=== PATIENT | female | born 1950 | race Caucasian/White ===

== ENCOUNTER 2016-06-26 10:09 | Day surgery (SDC) | payer MEDICARE ==
[2016-06-26] VITALS (11 sets, daily range): BP systolic 80–167; BP diastolic 56–91; PULSE 58–71; RESP 14–26; O2SAT 95–100
[~2016-06-26] VITALS: Ht 167.6 cm; Wt 72.6 kg
[2016-06-26] MEDS: Lactated Ringer's 1,000 ML IV SCH ×3 (05:00→12:29)
[~2016-06-26 10:09] MED LIST: ASPI-973 PO; CALC600T12 PO; CHOL100045 PO; Ceftriaxone 1,000 mg/50 mL D5W Minibag Plus IV ONE; DOXY25TA44 PO; HYDR25TA4 PO; LISI-567 PO; LOVA40TA PO; MELO-253 PO; OMEG-38 PO; OXYB10TA PO; PREC VAGINAL; Phenazopyridine 97.5 mg Tablet PO ONE; RANI150T11 PO; RISE150T PO
[2016-06-26] MEDS ORDERED: Propofol 10,000 mCg/mL 20 mL Inj ONE (10:10)
[2016-06-26] MEDS ORDERED: fentaNYL-PF 50 mCg/mL 2 mL Inj ONE (10:10)
[2016-06-26] MEDS ORDERED: Ondansetron 2 mg/mL 2 mL Inj ONE (10:10)
[2016-06-26] MEDS ORDERED: Furosemide 10 mg/mL 4 mL Inj ONE (10:10)
[2016-06-26] MEDS ORDERED: Succinylcholine Chloride 20 mg/mL 5 mL Inj ONE (10:10)
[2016-06-26] MEDS ORDERED: Phenazopyridine 97.5 mg Tablet ONE (10:53)
--- NOTE | 2016-06-26 12:20 | PCM.HPANE ---
Patient Data Surgeon Admitting Provider: Attending Provider:Estrada Blackmon MD Primary Care Physician:Curry Hodges DO Other Provider:[facility] Reason for Visit Cystocele, Rectocele, Vaginal Vault Prolapse Ht/WT & BMI Height (Feet): 5 Height (Inches): 6 Weight (Kilograms): 69.8 Body Mass Index 24.00 Allergies Coded Allergies: Penicillins (Verified Allergy, Unknown, UNKNOIWN (PEN V K AN INFANT) , 06/25/16) iodine (Verified Allergy, Unknown, UNKNOWN, 06/25/16) Past Anesthesia History Anesthesia History: Denies:: Anesthesia Reactions, Malignant Hyperthermia Diabetes History Hx Diabetes?: No MRSA MRSA: No Medications Blood Thinner: Aspirin Hypertension Medication: Yes (HCTZ,LISINOPRIL) Home Meds Incl Beta Richar: No Reported Medications Compton-3/Dha/Epa/Fish Oil (Fish Oil 1,000 mg Softgel)1 Each Capsule3 Each PO DAILY 06/25/16 Calcium Carbonate (Calcium)600 Mg Tablet1,200 Mg PO DAILY 06/25/16 Cholecalciferol (Vitamin D3) (Vitamin D)1,000 Unit Capsule2,000 Unit PO DAILY # 1 BOTTLE Ref 0 06/25/16 Ranitidine (Zantac)150 Mg Qsmtgt316 Mg PO BID PRN PRN 06/25/16 Doxylamine Succinate (Nighttime Sleep-Aid)25 Mg Lqlwcd48 Mg PO HS PRN PRN 06/25/16 Aspirin 81 Mg Wityda93 Mg PO DAILY Ref 0 06/25/16 Risedronate Sodium (Actonel)150 Mg Csvbvb999 Mg PO Q30D Ref 0 06/25/16 Lisinopril 20 Mg Ppgtcf61 Mg PO DAILY 30 Days Ref 0 06/25/16 Lovastatin 40 Mg Gibzsi64 Mg PO HS #30 TABLET Ref 0 06/25/16 Hydrochlorothiazide 25 Mg Gaojrm45 Mg PO DAILY 30 Days Ref 0 06/25/16 Oxybutynin Chloride ER 10 Mg Tab.er.2410 Mg PO DAILY Ref 0 06/25/16 Estrogens Conjugated (Premarin)1 Gm Vagcream1.5 Gm VAGINAL 2X WEEK #1 TUBE Ref 0 06/25/16 Discontinued Reported Medications Meloxicam 15 Mg Qhyuqn24 Mg PO DAILY 30 Days Ref 0 06/25/16 History History of ENT Problems?: Yes HEENT History: Denies:: Abnormal Airway Cataracts Difficult Intubation Dysphagia Glaucoma Hearing Problem Sinus Problem TMJ Denture Type: None Teeth Condition: Within Normal Limits Other HEENT Pertinent History: S/P TONSILLECTOMY Hx of Heart Problems?: Yes Cardiovascular History: Positive for:: Hypertension (HYPERLIPIDEMIA) Rheumatic Fever (CHILDHOOD) Denies:: Heart Murmur Other History/Comments wELL CONTROLLED HYPERTENSION Hx of Respiratory Problem?: No Respiratory History: Denies:: Use of C-PAP Machine Hx Neurologic Problems?: No Hx of GI Problems?: Yes Gastrointestinal History: Positive for:: Gastroesphageal Reflux Heartburn Other GI Pertinent History: S/P APPY Hx of Problems?: Yes Female Hx: Denies:: Currently (S/P BTL HX VAGINAL ATROPHY) Skin History: Denies:: History Skin Disorders? Pressure Ulcers Hx Musculoskeletal Problems?: Yes Musculoskeletal History: Positive for:: Degenerative Joint Osteoarthritis (OSTEOPENIA PLANNING LT IVIS IN FUTURE) Denies:: Back Injury (C/OF BACK PAIN) Hx of Psycho/Social Problems?: No Hx Surgeries?: Yes (BTL,VAG HYST/BSO,APPY,TIANA,TONSILLECTOMY) Hx Any Other Health Problems?: Yes Other History: Denies:: Cancer Endocrine Disease Hospitalization Thyroid Disease History Blood Transfusions: Positive for:: Accept Blood Products? Denies:: Blood Transfusions Hx Diabetes: No Hx Alcohol Use: YesAlcoholic Drinks Per Day: 1-2/WEEKHx Substance Use: No Have You Smoked inLast 12 mo: No Stop/Bang Treated for Sleep Apnea?: No Do You Have a CPAP Machine?: No S-Snoring: Do You Snore Loudly: No T-Tired: feel tired, fatigued: No O-Obsered: Observed not breath: No P-Blood Pressure: treated: Yes B- Body Mass Index > 35 kg/m2: No A- Age over 50: Yes N- Neck Large Circumference: No G- Gender Male: No BREANNE Total Score: 2 Risk Assessment Category Category 1A: Patient has history of documented sleep apnea, and HAS NOT received any narcotic, sedative or anesthesia administration during this stay. Category 1B: Patient has history of documented sleep apnea, and HAS received any narcotic , sedative or anesthesia administration during this stay Category 2: Patient has SUSPECTED Obstructive Sleep Apnea, and HAS received any narcotic , sedative or anesthesia administration during this stay. Category 3: Patient has SUSPECTED Obstructive Sleep Apnea and HAS NOT received narcotic, sedative or anesthesia administration during this stay. Category 4: Outpatient in Procedural Areas with known sleep apnea or who screen positive for High Risk via the STOP/BANG questionnaire. Exam Exam Vital Signs Vital Signs Date Time Temp Pulse Resp B/P Pulse Ox O2 Delivery O2 Flow Rate FiO2 06/26/16 11:16 36.4 64 16 125/74 97 Room Air General Appearance: Alert, Oriented X3, Cooperative HEENT/AIRWAY: MP 2 Lungs: Clear to Auscultation, Normal Air Movement Heart: Exam Unremarkable Meds/Labs/Diagnostics Admission Meds Current Medications Lactated Ringer's (Lr) 1,000 ml @ 120 mls/hr Q8H20M IV Last administered on 11:06; Start 06/26/16 at 05:00; Stop 06/26/16 at 13:19 Phenazopyridine HCl (Azo Standard) 2 tab STK-MED ONCE .ROUTE Last administered on 06/26/16 11:00; Start 06/26/16 at 10:53; Stop 06/26/16 at 10:55; Status DC Plan Impression Patient chart reviewed, patient interviewed and anesthestic plan with risks, benefits, and alternatives discussed, and informed consent obtained. ASA Physical Status: ASA2 Mod Systemic Disease Anesthetic Plan: GA Bene/Risks/Altern/Consents: Yes HP Complete Prior to Induction: Yes Dylan Lin MD Jun 26, 2016 12:20
[2016-06-26] MEDS ORDERED: Gentamicin 40 mg/mL 2 mL Inj IRRIGATION ONE ×3 (13:02→14:50)
[2016-06-26] MEDS ORDERED: Lidocaine 1%-Epi 1:100,000 50 mL Inj NERVEBLOCK ONE (13:02)
[2016-06-26] MEDS ORDERED: Lactated Ringer's 500 ML IV PRN (15:04)
[2016-06-26] MEDS ORDERED: Lactated Ringer's 1,000 ML IV SCH (15:04)
[2016-06-26] MEDS ORDERED: MetoCLOpramide 5 mg/mL 2 mL Inj IVPUSH PRN ×2 (15:05→16:30)
[2016-06-26] MEDS ORDERED: Dexamethasone 4 mg/mL Inj IVPUSH PRN (15:05)
[2016-06-26] MEDS ORDERED: Phenylephrine 10,000 mCg/mL Inj IVPUSH PRN (15:05)
[2016-06-26] MEDS ORDERED: HYDROmorphone 1 mg/mL Inj IVPUSH PRN (15:05)
[2016-06-26] MEDS ORDERED: Ondansetron 2 mg/mL 2 mL Inj IVPUSH PRN ×2 (15:05→16:30)
[2016-06-26] MEDS ORDERED: EPHEDrine Sulfate 50 mg/mL Inj IVPUSH PRN (15:05)
[2016-06-26] MEDS ORDERED: Estrogens Conjugated 30 Gm Vaginal Cream VAGINAL ONE (15:11)
[2016-06-26] MEDS ORDERED: Alum-Mag Hydrox-Simeth 30 mL Suspension PO PRN (16:30)
[2016-06-26] MEDS ORDERED: Acetaminophen IV 1,000 MG in IV Premix 1 EACH IV PRN (16:30)
[2016-06-26] MEDS ORDERED: diphenhydrAMINE 25 mg Capsule PO PRN (16:30)
--- NOTE | 2016-06-26 16:34 | PCM.ANEP1 ---
Post Anesthesia Phase 1 PACU Phase 1 Assessment Vital Signs Vital Signs Date Time Temp Pulse Resp B/P Pulse Ox O2 Delivery O2 Flow Rate FiO2 06/26/16 11:16 36.4 64 16 125/74 97 Room Air Anesthetic Administered: GA Level of Alertness: Sleepy, easy to arouse ELIZALDE's with Equal Strength: Yes Pain: No Nausea or Vomiting: No Cardiovascular Function and Hy: Yes Oxygen Delivery: Simple Mask Lungs: Clear to Auscultation, Normal Air Movement Dermatome Level: Full Sensation Complications: No Dylan Lin MD Jun 26, 2016 16:34
[2016-06-26] MEDS ORDERED: Non-Formulary Medication (Ranitidine (Zantac) 150 MG) PO PRN (16:35)
[2016-06-26] MEDS: fentaNYL-PF 50 mCg/mL 2 mL Inj IVPUSH PRN ×2 (16:53→17:05)
[2016-06-26 17:19] LABS: APPEARANCE,URINE CLEAR (CLEAR,HAZY); COLOR,URINE YELLOW (YELLOW); OCCULT BLOOD,URINE NEGATIVE (NEGATIVE); PH,URINE 7.5 (5.0-8.0); UROBILINOGEN,URINE NORMAL (NORMAL)
--- NOTE | 2016-06-26 17:37 | NUR ---
Post Op Pt transferred from PACU at 1730. Pt A&Ox3. ELIZALDE. Needed assistance with transfer to bed as right hip is hurting. Pain rated 8/10 in hip and abdomen. Medication to be given. Denies nausea. Metz catheter patent and draining to gravity. Urine slightly orange in color. Labial dressing with steri-strips and band-aids C/D/I. Packing in place and guadalupe-pad C/D/I. Will continue to monitor.
[2016-06-26] MEDS: 0.9% Sodium Chloride 1,000 ML IV SCH (18:03)
[2016-06-26] MEDS: Ketorolac 15 mg/mL Inj IVPUSH SCH (19:08)
[2016-06-26] MEDS: oxyCODONE-Acetamin 5-325 mg Tablet PO PRN (23:13)
[2016-06-27] MEDS: oxyCODONE-Acetamin 5-325 mg Tablet PO PRN ×4 (00:39→12:46)
[2016-06-27] MEDS: 0.9% Sodium Chloride 1,000 ML IV SCH ×2 (00:40→08:28)
[2016-06-27] MEDS ORDERED: Ceftriaxone 1,000 mg/50 mL D5W Minibag Plus IV ONE ×2 (01:00)
[2016-06-27] MEDS: Ketorolac 15 mg/mL Inj IVPUSH SCH (01:39)
--- NOTE | 2016-06-27 01:43 | PCM.SURGOP ---
Surgical Operative Report Date of Service: Jun 26, 2016 Pre Operative Diagnosis 1. Rectocele 2. Vaginal vault prolapse after hysterectomy 3. Cystocele 4. urodynamic stress incontinence 5. Vulvar lesion Post Operative Diagnosis 1. POPQ stage 3 Rectocele, Vaginal vault prolapse, and Enterocele 2. POPQ stage 1-2 Cystocele 3. urodynamic stress incontinence 4. Vulvar lesion Procedure: 1. anterior repair 2. posterior repair with Xenform biologic graft augmentation, 3. high uterosacral ligament vaginal vault suspension and enterocele repair, 4. TVT-obturator sling and cystoscopy 5. excision of vulvar lesion Surgeon and Customer Support Consultant: Surgeon: Estrada Blackmon MD Assistants: Phoebe Mistry Indication for Procedure Her assessment to date includes: 1. Rectocele N81.6 (618.04): 2. Vaginal vault prolapse after hysterectomy N99.3 (618.5): 3. Urodynamics revealed urodynamic stress incontinence and detrusor overactivity incontinence 4. Hyperpigmented Vulvar lesion The patient is a candidate for surgical management in the form of anterior repair and posterior repair with possible biologic graft augmentation, high uterosacral ligament vaginal vault suspension and enterocele repair, TVT-obturator sling and excision of vulvar lesion. The patient signed the consent form. She agreed with the risks, benefits, and alternatives to surgery. The risks included but not limited to recurrence or persistence of prolapse, recurrence of persistence of incontinence, development of voiding dysfunction, development of urinary urgency, urgency incontinence, frequency, and need for intermittent self-catheterization or prolonged indwelling catheterization, injury to other organs including bladder, bowel, nerves or blood vessels. Need for blood transfusion, need for temporary colostomy or urinary stenting. Development of vaginal scarring, dyspareunia, defecatory dysfunction, recurring pain, hematoma formation, urinary tract infection, cellulitis, necrotizing fascitis, and medical risks including myocardial infarction, stroke or VTE. She also understood the FDA warnings associated with the use of vaginal mesh (dysparunia, vaginal erosion, erosion into bowel/bladder/urethra, requiring further surgery to correct these complications). The patient understood the risks and benefits and consented to surgery. Findings: 1 cm by 0.5 cm hyperpigmented vulvar skin lesion see dictation Procedure Details SURGICAL TECHNIQUE: The patient was brought to the operating room and was placed under general anesthesia. She was prepped and draped in the normal fashion for vaginal surgery with the legs in Yellofin stirrups. She was given a dose of 2 gram IV ancef intraoperatively. She received 200 mg of oral pyridium in the pre-operative holding area. 1..Posterior colpoperineorrhaphy with Xenform graft augmentation: Lidocaine 0.5 % with 1:50,000 of epinephrine was infiltrated along the perineum and posterior vaginal wall mucosa. A POPQ stage 3 apical and posterior vaginal prolapse was noted. A small, thin elvin-shaped wedge of perineum was excised. A Midline vertical incision was made through the posterior vagina with a scalpel. The vaginal mucosa was dissected off the underlying rectovaginal tissues. It was noted the fascial tissues were thin and deficient especially at the area of the apex and was composed mainly of adipose tissue. During the apical dissection, a large enterocele sac was encountered and this was entered with sharp dissection with Metzenbaum scissors. We then proceeded with a vault suspension and would later resume with the posterior repair. 2. High uterosacral ligament vaginal vault suspension, cystoscopy & enterocele repair: Four mini laparotomy sponges were packed to retract the bowel upwards. A pair of Allis clamps were placed along the intraperitoneal portions of the vagina at the 5 and 7 o' clock positions. Tension along these Allis clamps allowed for identification of the uterosacral ligaments bilaterally. Also the ureters were carefully palpated to avoid penetrating them with suture. A pair of 0 Vicryl sutures were passed around the uterosacral ligaments of the level of the ischial spines bilaterally, totalling 4. Cystoscopy was performed while the vault sutures were placed under tension. Brisk spillage of pyridium-stained urine was noted at both ureteric orifices. Next, four 3-0 Prolene sutures were placed transversely through the cul-de-sac peritoneum. This was performed while using a gloved finger in the rectum as to avoid penetrating the underlying rectal mucosa. Tying these sutures obliterated the enterocele. The excess distal enterocele sac was then excised and sent to pathology. The rectocele was plicated in a site-specific fashion first using 2-0 Vicryl suture in an interrupted fashion, then in a midline plicated fashion with 2-0 Vicryl suture in an interrupted fashion. A rectangular piece of Xenform graft was then sutured above the plicated tissue. The apical portion of this graft was secured at the level of the enterocele repair using 2-0 vicryl suture. Laterally and distally the graft was secured using 2-0 Vicryl suture in interrupted fashion. Moderate excess posterior vaginal mucosa was needed to be excised. 3. Anterior colporrhaphy: Lidocaine 0.5% with 1/73355 epinephrine was infiltrated along the anterior vaginal wall mucosa. A POPQ stage 1-2 anterior vaginal descent was noted. A midline vertical incision was made through the anterior vaginal wall. The vaginal wall was dissected off the underlying pubocervical and pubovesical fascia. The dissection was extended laterally beyond the ischial pubic rami. It was noted that the pubocervical and pubovesical fascial tissues were not deficient or thin. No paravaginal defects were noted. The cystocele was plicated in 2 layers, the first layer with 2-0 Vicryl suture in interrupted fashion, the second layer with 2-0 Tycron suture in an interrupted fashion. No excess anterior vaginal mucosa needed to be excised. The high uterosacral ligament vaginal vault suspension sutures were passed through the planned apex of the vagina. The vagina was then reapproximated using 3-0 Vicryl suture in a running locked fashion. Perineum was reapproximated using 2-0 Vicryl suture in an interrupted fashion. The skin was reapproximated using 3-0 Vicryl suture in a subcuticular fashion. The high uterosacral ligament vaginal vault suspension sutures were tied and this elevated the apex of the vagina high up into the hollow of the sacrum. Then we proceeded with cystoscopy. Cystoscopy revealed a normal appearing urethra. However, there was scarring noted along the inferior dome of the bladder which we suspected was from her previous remote history of hysterectomy. Careful digital manipulation of the bladder and anterior segment did not reveal any incidental suture penetration into the bladder. Both ureteric orifices were visualized and noted to be functional by the brisk spillage of pyridium-stained urine. The 16F Metz catheter was then reinserted. Vaginal exam allowed for the insertion of 3 gloved fingers. 4. TVT-Obturator sling and cystoscopy. Lidocaine 0.5% with epinephrine was infiltrated along the anterior vaginal wall mucosa at the level of the mid urethra. Midline vertical incision was made at that level, 2 periurethral tunnels were created with Metzenbaum scissors. Two stab incisions were created at the skin at the groin at a level 2 cm superior to the external urethral meatus and 2 cm lateral to the fold created between the vulva and thigh. Metz catheter had already been inserted. A butterfly guide was inserted into the right periurethral tunnel, a curved helical needle was inserted on top of the guide and rotated out to the ipsilateral skin incision. The same procedure was performed on the contralateral side. Next the Metz catheter was removed. Cystoscopy was performed. There was no inadvertent penetration of the sling to the vagina, urethra or bladder. The plastic sheaths of the sling were removed. The bladder was filled with 300 mL of sterile water. Using the Crede maneuver, sling tension was appropriately adjusted. Also a right angle clamp was allowed to easily pass behind the sling so that the sling was placed in a tension-free manner. The sling ends were cut at the level of the skin. The skin was reapproximated using Mastisol, Steri-Strips and band-aids. The vagina was reapproximated using 3-0 Vicryl suture in a running fashion. 5. Excision of vulvar lesion. A hyperpigmented lesion was noted along the right inferior vulvar skin measuring 0.5 cm x 1 cm. The area was infiltrated with lidocaine with epinephrine. An elliptical incision was made around the lesion and the lesion was excised and sent to pathology. The deeper layer was reapproximated with 2-0 vicryl suture in an interrupted fashion. The skin was reapproximated with 4-0 suture in a subcuticular fashion. The estimated blood loss was approximately 100 mL. There were no complications. All sponges and instruments were accounted for. She will be observed overnight in a bed as she requires a voiding trial in the morning. Complications There were no periprocedural complications identified. Surgical Specimen Removed: Yes Specimen sent to Pathology: Yes Surgical Specimen description: enterocele sac vulvar skin lesion Anesthetic Plan: GA Grafts, Implants: Grafts-See Implant Record, Implants-See Implant Record Output, Estimated Blood Loss: 100 (mL EBL) Blood Administration during sloan: No Drains: None Catheters: Urethral 2 Way Metz Post Operative Plan overnight observation in bed as she requires a voiding trial in the am copies to: Curry Hodges DO; Etsrada Blackmon MD; Phoebe Mistry William Andre Z MD Jun 27, 2016 01:43
[2016-06-27 05:04] VITALS: BP 134/80; PULSE 75; RESP 16; O2SAT 97
[2016-06-27 05:22] LABS: BASOPHILS % (AUTO) 0.2 % (0-3); EOSINOPHILS % (AUTO) 0.2 % (0-5); MONOCYTES % (AUTO) 10.8 % (4-12); Mean Corpuscular Hemoglobin 31.6 pg (27.0-35.0); Mean Corpuscular Volume 93.3 fL (81-100); NEUTROPHILS % (AUTO) 61.6 % (40-74); Platelet Count 174 bil/L (150-400)
--- NOTE | 2016-06-27 05:22 | NUR ---
Pain Pain difficult to manage, however able to reduce overall pain. At start of shift pain measured at 8/10, pain now 4/10 but by utilizing PRN medications routinely. Pain is strongly associated with hip rather than surgical site. Patient declined dangling at edge of bed due to pain levels.
[2016-06-27 07:21] VITALS: BP 116/72; RESP 18; O2SAT 95
[2016-06-27 08:30] VITALS: PULSE 67; RESP 18; O2SAT 97
[2016-06-27] MEDS ORDERED: Senna-Docusate 8.6-50 mg Tablet PO SCH (08:30)
[2016-06-27] MEDS ORDERED: Heparin 5,000 Unit/mL Inj SUBQ SCH (08:30)
--- NOTE | 2016-06-27 10:00 | NUR ---
Activity Pt up and ambulating to the bathroom SBA FWW. Tolerating activity well. Will continue to encourage ambulating.
--- NOTE | 2016-06-27 11:29 | NUR ---
Metz Vaginal packing removed. Instilled 300cc of sterile water into bladder and d/c'd Metz per protocol. Will continue to monitor urine output. Addendum: 06/27/16 at 1545 by IVA LEMUS RN Pt able to void 200cc in 30 min. Metz catheter not replaced.
--- NOTE | 2016-06-27 11:57 | PCM.DIGYN ---
Surgical Discharge Instruction Dates of Hospitalization Date of Hospital Admission 06/26/16 overnight stay as outpatient in bed Providers Admitting Physician: Primary Care Physician: Curry Hodges DO Attending Physician: Estrada Blackmon MD Diagnosis at Time of Discharge Diagnosis at time of discharge 1. POPQ stage 3 Rectocele, Vaginal vault prolapse, and Enterocele 2. POPQ stage 1-2 Cystocele 3. urodynamic stress incontinence 4. Vulvar lesion Post-operative diagnosis 1. POPQ stage 3 Rectocele, Vaginal vault prolapse, and Enterocele 2. POPQ stage 1-2 Cystocele 3. urodynamic stress incontinence 4. Vulvar lesion Problems: Diet Discharge Diet: No restrictions Activity Discharge Activity-General: Restrict lifting to no greater than (10 lbs for 6 wk) Dressing and Incisional Care Dressing Care: Allow Steri Stripes to fall off Hygiene: May shower Follow Up Plan Follow-up appointment: Weeks (2; also f/u with Dr. blackmon's MA in 1 wk if home with osei) Call your provider for: Fever, Chills, Shortness of breath, Vomitting, Drainage at incision, Heavy vaginal bleeding, Wound redness, Increasing pain Estrada Blackmon MD Jun 27, 2016 11:57
[2016-06-27 13:08] VITALS: BP 146/66; RESP 16; O2SAT 99
--- NOTE | 2016-06-27 13:21 | PCM.PNSURG ---
Subjective Date of Service: Jun 27, 2016 Date of Service: Jun 27, 2016 Visit Information: Reason for Visit Cystocele, Rectocele, Vaginal Vault Prolapse Surgery/Surgery Date Post-Op Day # 1 Subjective: AVSS patient ambulated to bathroom and voided 200 ml x 2 after voiding trial OR explained Pain control with PO analgesia hct stable Postop General: No Complaints Gastrointestinal: Good Appetite Pain Management: PO Postop Activity: Ambulating Independently Objective Vital Sign- Last 8 Hours Date Time Temp Pulse Resp B/P Pulse Ox O2 Delivery O2 Flow Rate FiO2 06/27/16 13:08 36.7 16 146/66 99 Room Air 06/27/16 08:30 67 18 97 Room Air 06/27/16 07:21 36.8 18 116/72 95 Room Air Intake and Output- Last 8 Hour 06/27/16 Cumulative From/Thru 07:00 06/25/16 10:43 - 06/27/16 05:16 Intake Total 2014 ml 3464 ml Output Total 500 ml 1300 ml Balance 1514 ml 2164 ml Intake Oral 700 ml 900 ml IV Total 1314 ml 2564 ml Output Urine Total 400 ml 1100 ml Estimated Blood Loss 100 ml 200 ml General: Alert, Oriented X3, Cooperative Lungs: Clear to Auscultation Abdomen: Benign Catheters: None Result Diagram: 06/27/16 0500 Assessment & Plan Impression stable for discharge POD#1 Problems: Plan d/c home; f/u in 2 wk VTE Prophylaxis: Sub-Q Heparin (Unfractionated) Resuscitation Status: CPR: Attempt Resuscitation copies to: Estraad Blackmon MD, William Andre Z MD Jun 27, 2016 13:21
--- NOTE | 2016-06-27 15:45 | NUR ---
Discharge Pt discharge teaching and instructions done with at bedside. All questions and concerns addressed. took RX to get filled before discharge. IV d/c'd intact. Pt voiding with no c/o of fullness or pain. Pt pain is controlled with po pain medication. No items in the safe or in the pharmacy.
--- NOTE | 2016-06-28 13:38 | PATH ---
SURGICAL PATHOLOGY Attending Physician:Estrada Blackmon, CASE STATUS: Signed Out PATIENT NAME: MANJINDER YOUNGBLOOD PID: [id number] : 1950 DATE COLLECTED:06/26/2016 23:48 SPECIMEN: 1: Hernia Sac 2: Vulva, Biopsy CLINICAL HISTORY: CYSTOCELE, RECTOCELE, VAGINAL VAULT PROLAPSE, VULVAR LESION 1). ENTEROCELE SAC 2). VULVAR LESION, STITCH AT 9:00 FINAL DIAGNOSIS: 1.ENTEROCELE SAC: FIBROADIPOSE TISSUE CONSISTENT WITH ENTEROCELE SAC. 2.VULVAR LESION EXCISION: PIGMENTED SQUAMOUS EPITHELIAL HYPERPLASIA WITH KERATIN CYSTS CONSISTENT WITH VARIANT OF SEBORRHEIC KERATOSIS. NEGATIVE FOR MALIGNANCY AND SIGNIFICANT ATYPIA. ICD10 CODE L82.1 GROSS DESCRIPTION: The specimen is received in two formalin filled containers labeled with the patient's name. 1). The specimen is sublabeled "enterocele sac" and consists of a pink-arias portion of soft tissue which measures 5.0 x 2.5 x 0.5 CM. 3 billing customer service representative sections are submitted cassette 1A. 2). The specimen is sublabeled "vulvar lesion stitch 9:00" and consists of a sun-arias ovoid rough portion of tissue which measures 1.5 x 0.6 x 0.5 CM. One tip of the ellipse is tagged with a suture designated 9:00. The specimen is oriented with suture at 9:00 in inking gross follows: From 9 to 12:00 yellow, from 12 to 3:00 blue, from 3-6-9:00 black. Tips are submitted in cassette 2A. The remaining sample is serially sectioned into 3 pieces and entirely submitted in cassette 2B. 06/27/2016 [facility] MICRO DESCRIPTION: See diagnosis. ICD-9 CODES: CPT CODES: 1: 46023 2: 55873 Electronically Signed Out Gordon Joe MD [facility] Pathology [facility] [address], [place] [address] Technical component performed at [facility], [facility] [address], [place], [address]
== END 2016-06-27 15:45 | disposition home or self-care (01) ==
LOC: SAS 10:09 → OSC 17:47 → SAS 06-27 15:45
PROVIDERS: ATTEND Obstetrics & Gynecology
PROC: 0UQF0ZZ Repair Cul-de-sac, Open Approach (ICD-10-PCS; 2016-06-26)
PROC: 0HQ9XZZ Repair Perineum Skin, External Approach (ICD-10-PCS; 2016-06-26)
PROC: 0JUC0KZ Supplement of Pelvic Region Subcutaneous Tissue and Fascia with Nonautologous Tissue Substitute, Open Approach (ICD-10-PCS; 2016-06-26)
PROC: 0USG0ZZ Reposition Vagina, Open Approach (ICD-10-PCS; 2016-06-26)
PROC: 0UBMXZZ Excision of Vulva, External Approach (ICD-10-PCS; 2016-06-26)
PROC: 0TSD0ZZ Reposition Urethra, Open Approach (ICD-10-PCS; 2016-06-26)
PROC: 0JQC0ZZ Repair Pelvic Region Subcutaneous Tissue and Fascia, Open Approach (ICD-10-PCS; principal; 2016-06-26 13:00)
DX: N99.3 Prolapse of vaginal vault after hysterectomy (principal); N39.46 Mixed incontinence; N81.11 Cystocele, midline; N81.6 Rectocele; N90.89 Other specified noninflammatory disorders of vulva and perineum; K11.7 Disturbances of salivary secretion; I10 Essential (primary) hypertension; N95.2 Postmenopausal atrophic vaginitis; L82.1 Other seborrheic keratosis
CPT/HCPCS: 11422; 12041; 36415; 57265; 57267; 57283; 57288; 81000; 85025; 86850; 94640; C1763; C1771; J0330; J0696; J1580; J1644; J1885; J1940; J2270; J2405; J3010; J7030; J7120